=== PATIENT | male | born 1955 | race Caucasian/White ===

== ENCOUNTER 2017-07-11 13:20 | Emergency (ER) | payer BC ==
[~2017-07-11 13:20] MED LIST: Nitroglycerin 0.4 MG Tab.SL SL ONE
[2017-07-11] MEDS ORDERED: fentaNYL 100 MCG/2 ML SDV IVPUSH ONE ×2 (13:35→13:56)
[2017-07-11] MEDS: fentaNYL 100 MCG/2 ML SDV ONE ×2 (13:35→13:54)
[2017-07-11 13:47] LABS: CHLORIDE,CL 102 mEq/L (98-106); SODIUM,NA 140 mEq/L (136-145)
[2017-07-11] MEDS ORDERED: Alum Hydrox/Mag Hydrox/Simeth 30 ML, Lidocaine 2% 15 ML PO ONE ×2 (13:47)
--- NOTE | 2017-07-11 14:04 | EDM.PDOC ---
ED HPI GENERAL MEDICAL PROBLEM - General Chief Complaint: Cardiovascular Problem Stated Complaint: CARIDAC Time Seen by Provider: 07/11/17 13:20 Source of Information: Reports: Patient History Limitations: Reports: No Limitations - History of Present Illness INITIAL COMMENTS - FREE TEXT/NARRATIVE: States that last night he started having midepigastric pain and took pepto and felt worse. 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 He states that he was very diaphoretic and short of breathe with it. He keeps belching. No vomiting but has had dry heaves. No diarrhea or constipation. Denies fever or chills. Pain is worse with any movement. Does feel SOB with it. Denies ever having pain like this in the past. Had been feeling well until last evening. Onset: Sudden Location: Reports: Abdomen, Generalized Quality: Reports: Sharp, Stabbing Associated Symptoms: Reports: Shortness of Breath Lower Mid-Sternal Chest Pain Score (Numeric/FACES): 9 - Related Data Allergies Allergy/AdvReac Type Severity Reaction Status Date / Time No Known Allergies Allergy Verified 07/11/17 14:04 Home Meds: Home Meds Lisinopril 5 mg PO DAILY 07/11/17 [History] atorvaSTATin [Lipitor] 10 mg PO DAILY 07/11/17 [History] Past Medical History Cardiovascular History: Reports: High Cholesterol, Hypertension Social & Family History - Family History Family Medical History: Noncontributory ED ROS GENERAL - Review of Systems Review Of Systems: See Below Constitutional: Denies: Fever, Chills HEENT: Reports: No Symptoms Respiratory: Reports: Shortness of Breath Cardiovascular: Reports: No Symptoms GI/Abdominal: Reports: Abdominal Pain. Denies: Bloody Stool, Constipation, Diarrhea Skin: Reports: No Symptoms Neurological: Reports: No Symptoms ED EXAM, GENERAL - Physical Exam Exam: See Below Exam Limited By: No Limitations General Appearance: Alert, Severe Distress Ears: Normal External Exam, Normal Canal Nose: Normal Inspection Throat/Mouth: Normal Inspection, Normal Oropharynx Head: Atraumatic, Normocephalic Neck: Normal Inspection, Supple, Non-Tender, Full Range of Motion Respiratory/Chest: Lungs Clear, Other (respirations are rapid at times and he states that he feels SOB at rest. ). No: Rales, Rhonchi, Wheezing Cardiovascular: Regular Rate, Rhythm, No Edema Peripheral Pulses: 4+: Dorsalis Pedis (L), Dorsalis Pedis (R) GI/Abdominal: Soft, Tender (to the midepigastric area and to the right lower quadrant. Is rebounding to the right with palpation of the left. Some guarding of the abdomen noted. Is dry heaving at times with movement. ) Back Exam: Normal Inspection Extremities: Normal Inspection, Normal Range of Motion, No Pedal Edema, Normal Capillary Refill Neurological: Alert, Oriented Skin Exam: Warm, Dry, Intact Course - Vital Signs Last Recorded V/S: Last Vital Signs Temp 96.7 F 07/11/17 13:37 Pulse 73 07/11/17 15:50 Resp 20 07/11/17 15:50 BP 152/96 H 07/11/17 15:50 Pulse Ox 97 07/11/17 15:50 - Orders/Labs/Meds Labs: Laboratory Tests 07/11/17 07/11/17 07/11/17 Range/Units 13:30 13:30 13:30 WBC 14.6 H (5.0-10.0) 10^3/uL RBC 5.68 (4.50-6.00) 10^6/uL Hgb 17.5 (14.0-18.0) g/dL Hct 49.3 (40.0-54.0) % MCV 86.8 (82.0-94.0) fL MCH 30.8 (27.0-32.0) pg MCHC 35.5 (33.0-38.0) g/dL RDW Coeff of [place] 12.2 (11.0-15.0) % Plt Count 237 (150-400) 10^3/uL Neut % (Auto) 77.6 (35-85) % Lymph % (Auto) 14.0 (10-55) % [place] % (Auto) 8.2 (0-16) % Eos % (Auto) 0 (0-5) % Baso % (Auto) 0.2 (0-3) % Neut # (Auto) 11.32 H (1.80-7.00) 10^3/uL Lymph # (Auto) 2.04 (1.00-4.80) 10^3/uL [place] # (Auto) 1.20 H (0.00-0.80) 10^3/uL Eos # (Auto) 0.00 (0.00-0.45) 10^3/uL Baso # (Auto) 0.03 10^3/uL PT 11.3 (9.7-12.3) SEC INR 1.04 (0.92-1.18) APTT 24.1 L (24.5-30.9) SEC D-Dimer, Quantitative 3.91 H (0.00-0.50) Sodium 140 (136-145) mEq/L Potassium 5.1 H (3.5-5.0) mEq/L Chloride 102 (98-106) mEq/L Carbon Dioxide 24 (21-32) mmol/L BUN 22 H (7-18) mg/dL Creatinine 1.4 H (0.7-1.3) mg/dL Est Cr Clr Drug Dosing 59.28 mL/min Estimated GFR (MDRD) 51 L (>=60) mL/min Glucose 162 H (75-99) mg/dL Calcium 9.7 (8.4-10.1) mg/dL Total Bilirubin 0.9 (0.0-1.0) mg/dL AST 17 (15-37) U/L ALT 42 (12-78) U/L Alkaline Phosphatase 76 (46-116) U/L Lactate Dehydrogenase 165 (100-190) U/L Creatine Kinase 70 (35-232) U/L Troponin I < 0.017 (0.00-0.06) ng/mL C-Reactive Protein 6.5 H (0.2-0.8) mg/dL Total Protein 8.0 (6.4-8.2) g/dL Albumin 3.7 (3.4-5.0) g/dL Meds: Medications Discontinued Medications Generic Name Dose Route Start Last Admin Trade Name Freq PRN Reason Stop Dose Admin Al Hydroxide/Mg Hydroxide 30 0 ml 07/11/17 13:47 07/11/17 13:52 ml/ Lidocaine HCl 15 ml PO 07/11/17 13:48 15 ml ONETIME ONE Administration Fentanyl Confirm 07/11/17 13:26 07/11/17 13:54 Sublimaze Administered 07/11/17 13:27 Not Given Dose 100 mcg .ROUTE .STK-MED ONE Fentanyl 25 mcg 07/11/17 13:35 07/11/17 13:35 Sublimaze IVPUSH 07/11/17 13:36 25 mcg ONETIME ONE Administration Fentanyl 50 mcg 07/11/17 13:56 07/11/17 14:01 Sublimaze IVPUSH 07/11/17 13:57 50 mcg ONETIME ONE Administration Hydromorphone HCl 1 mg 07/11/17 14:35 07/11/17 14:39 Dilaudid IVPUSH 07/11/17 14:36 1 mg ONETIME ONE Administration Hydromorphone HCl 1 mg 07/11/17 15:02 07/11/17 15:09 Dilaudid IVPUSH 07/11/17 15:03 1 mg ONETIME ONE Administration Hydromorphone HCl 2 mg 07/11/17 16:01 07/11/17 16:12 Dilaudid IVPUSH 07/11/17 16:02 2 mg ONETIME ONE Administration Lactated Ringer's Confirm 07/11/17 16:01 07/11/17 17:31 Ringers, Lactated Administered 07/11/17 16:02 Not Given Dose 1,000 mls @ as directed .ROUTE .STK-MED ONE Lactated Ringer's 1,000 mls @ 100 mls/hr 07/11/17 16:00 07/11/17 16:12 Ringers, Lactated IV 100 mls/hr ASDIRECTED LAURI Administration Iopamidol 100 ml 07/11/17 14:06 07/11/17 14:28 Isovue-370 (76%) IVPUSH 07/11/17 14:07 100 ml ONETIME ONE Administration Nitroglycerin 0.4 mg 07/11/17 13:20 07/11/17 13:20 Nitrostat SL 07/11/17 13:21 0.4 mg ONETIME ONE Administration Ondansetron HCl 4 mg 07/11/17 14:16 07/11/17 14:28 Zofran IVPUSH 4 mg Q6H PRN Administration Nausea - Re-Assessments/Exams Free Text/Narrative Re-Assessment/Exam: 07/11/17 14:36 CT scan done. Discussed with pt additional pain meds as he has not had any relief from the previous meds. Pain continues around the epigastric area and right lower quadrant. Free Text/Narrative Re-Assessment/Exam: 07/11/17 15:[address] results with radiology. 15:58 Called [facility] one call and discussed case with Dr. Vivas from surgery. Pt will be transported to [facility] via flight [facility]. Departure - Departure Time of Disposition: 14:00 Disposition: DC/Tfer to Acute Hospital 02 Reason for Transfer *Q: Other Condition: Critical Clinical Impression: Portal vein thrombosis, Acute bowel infarction Referrals: PCP,None [Primary Care Provider] - Forms: ED Department Discharge - Problem List & Annotations (1) Acute bowel infarction SNOMED Code(s): 42424840 Code(s): K55.069 - ACUTE INFARCTION OF INTESTINE, PART AND EXTENT UNSPECIFIED Status: Acute Priority: High (2) Portal vein thrombosis SNOMED Code(s): 81949984 Code(s): I81 - PORTAL VEIN THROMBOSIS Status: Acute Priority: High - Problem List Review Problem List Initiated/Reviewed/Updated: Yes
[2017-07-11] MEDS ORDERED: Iopamidol 755 Mg/ML 100 ML Bottle IVPUSH ONE (14:06)
[2017-07-11] MEDS ORDERED: Ondansetron 4 MG/2 ML SDV IVPUSH PRN (14:16)
[2017-07-11] MEDS ORDERED: HYDROmorphone 1 MG/ML Syringe IVPUSH ONE ×3 (14:35→16:01)
[2017-07-11] MEDS ORDERED: Lactated Ringers 1,000 ML IV SCH (16:00)
[2017-07-11] MEDS: Lactated Ringers 1,000 ML ONE ×2 (16:12→17:31)
== END 2017-07-11 16:40 ==
LOC: EDBD → CC.ED 13:20
DX: I81 Portal vein thrombosis (principal); K55.069 Acute infarction of intestine, part and extent unspecified; E78.00 Pure hypercholesterolemia, unspecified; I10 Essential (primary) hypertension; Z79.899 Other long term (current) drug therapy
CPT/HCPCS: 36415; 71020; 71275; 74177; 80053; 82550; 83615; 84484; 85025; 85379; 85610; 85730; 86140; 93005; 96365; 96374; 96375; 96376; 99285; A9270; J1170; J2405; J3010; J7120; Q9967